=== PATIENT | male | born 1945 | race Caucasian/White ===

== ENCOUNTER 2019-06-11 13:01 | Outpatient (CLI) | payer MEDICARE, SELFPAY ==
--- NOTE | ~2019-06-11 | XR_ITS ---
EXAMINATION: XR chest 2V 06/11/2019 13:42 INDICATION: Chest pain PROCEDURE: 2 view chest COMPARISON: 02/01/2017 FINDINGS: The lungs are clear. The cardiomediastinal silhouette is within normal limits. There are no pleural effusions. There is no pneumothorax suspected. IMPRESSION: 1: NO ACUTE CARDIOPULMONARY DISEASE. Reviewed, dictated and finalized at location A.
== END 2019-06-11 13:02 | disposition home or self-care (01) ==
LOC: CHSIMG 13:09
PROVIDERS: PCP Family Medicine; Visit Provider Family Medicine
DX: R07.9 Chest pain, unspecified (principal)
CPT/HCPCS: 71046

== ENCOUNTER 2020-02-06 09:32 | Outpatient (CLI) | payer MEDICARE, SELFPAY ==
[2020-02-08 16:41] LABS: SARS-CoV-2 RNA PCR Negative
== END 2020-02-06 09:33 | disposition home or self-care (01) ==
LOC: CHSLAB 09:35
PROVIDERS: PCP Family Medicine; Visit Provider Family Medicine
DX: Z20.828 Contact with and (suspected) exposure to other viral communicable diseases (principal)
CPT/HCPCS: 87635; C9803; U0003

== ENCOUNTER → 2020-11-15 09:50 | Outpatient (CLI) | payer MEDICARE, SELFPAY ==
[2020-11-15 19:54] LABS: SARS-CoV-2 RNA PCR Negative
== END ==
PROVIDERS: PCP Family Medicine; Visit Provider Nurse Practitioner Family
DX: R68.89 Other general symptoms and signs (principal); Z20.822 Contact with and (suspected) exposure to COVID-19
CPT/HCPCS: C9803; U0003; U0005

== ENCOUNTER 2021-07-12 13:55 | Outpatient (CLI) | payer MEDICARE, SELFPAY ==
[2021-07-12 14:56] LABS: SARS-CoV-2 RNA PCR Positive (Negative)
== END 2021-07-12 13:56 | disposition home or self-care (01) ==
LOC: CHSLAB 13:58
PROVIDERS: PCP Family Medicine; Visit Provider Nurse Practitioner Family
DX: U07.1 COVID-19 (principal); R68.89 Other general symptoms and signs
CPT/HCPCS: C9803; U0003; U0005

== ENCOUNTER 2022-01-18 10:13 | Outpatient (CLI) | payer MEDICARE, SELFPAY ==
--- NOTE | ~2022-01-18 | XR_ITS ---
EXAMINATION: XR chest 2V 01/18/2022 10:27 INDICATION: Cough PROCEDURE: 2 view chest COMPARISON: Comparison to multiple prior studies sequentially, with oldest reviewed study dated 04/12. FINDINGS: The lungs are clear. The cardiomediastinal silhouette is within normal limits. There are no pleural effusions. There is no pneumothorax suspected. IMPRESSION: 1: NO ACUTE CARDIOPULMONARY DISEASE. Reviewed, dictated and finalized at location A.
== END 2022-01-18 10:14 | disposition home or self-care (01) ==
LOC: CHSIMG 10:15
PROVIDERS: PCP Family Medicine; Visit Provider Family Medicine
DX: J40 Bronchitis, not specified as acute or chronic (principal)
CPT/HCPCS: 71046

== ENCOUNTER 2022-09-19 06:06 | Day surgery (SDC) | payer MEDICARE, SELFPAY ==
[2022-09-04 13:36] VITALS: BMI 33.2
--- NOTE | 2022-09-17 14:58 | PM.HPGS ---
History of Present Illness History of Present Illness Consent: Risks, benefits, and alternatives have been discussed and questions answered. Patient agrees to proceed with procedure. Chief complaint: Desouza's Esophagus Narrative: Carlos Howard is a 76 year old male referred for follow-up of Barretts esophagus. Biopsies revealed Desouza's esophagus in 2016. A subsequent examination 3 years later biopsies did not show Desouza's mucosa. He did have a Schatzki's ring at that time. Review of Systems Review of Systems: All systems reviewed & are unremarkable except as noted in HPI and below PMFSH Past Medical History Medical History BMI 33.0-33.9,adult BMI 34.0-34.9,adult Bronchitis Coronary artery disease Erectile dysfunction Hyperlipidemia Hypertension Osteoarthritis of hands, bilateral Screening for prostate cancer URI (upper respiratory infection) Surgical History Surgical History History of appendectomy History of heart artery stent History of prostatectomy Family History Family History Mother Cerebrovascular accident Family history of malignant neoplasm of brain Family history of malignant neoplasm Father Family history of coronary artery disease Social History Social History Smoking status: Never smoker Second hand tobacco smoke exposure: Yes Alcohol intake: current Substance use: never Substance use type: does not use Living arrangements: other Additional living arrangements comments: With 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 Gender identity (if verbalized by the patient): Male Meds Home Medications and Allergies Home Medications Medication Instructions Recorded Confirmed Type Multi-Vitamins with Iron 1 tab-cap PO DAILY 01/16/19 09/04/22 History aspirin 81 mg tablet,delayed 81 mg PO DAILY 01/16/19 09/04/22 History release (Carlos Low Dose Aspirin) cholecalciferol (vitamin D3) 100 4,000 unit PO DAILY 01/16/19 09/04/22 History mcg (4,000 unit) capsule (Vitamin D3) coenzyme Q10 200 mg capsule (Co 250 mg PO DAILY 01/16/19 09/04/22 History Q-10) cyanocobalamin (B12)-cobamamide 200 truong sublingual DAILY 01/16/19 09/04/22 History 5,000 mcg-100 mcg sublingual lozenge (B12) nitroglycerin 0.4 mg sublingual 0.4 mg sublingual Q5M PRN chest 06/11/19 09/04/22 Rx tablet pain #25 tabs metoprolol succinate 25 mg See Rx Instructions .Route 03/14/20 09/04/22 Rx tablet,extended release 24 hr .COMPLEX #90 tabs amlodipine 5 mg tablet (Norvasc) 5 mg PO DAILY #90 tabs 05/16/20 09/04/22 Rx irbesartan 150 mg tablet 150 mg PO DAILY #90 tabs 06/11/20 09/04/22 Rx atorvastatin 10 mg tablet 10 mg PO DAILY #30 tabs 06/20/20 09/04/22 Rx diclofenac sodium 1 % topical gel 2 g topical QID #100 grams 06/01/21 09/04/22 Rx trazodone 50 mg tablet 50 mg PO HS PRN RESTLESS LEG #90 03/08/22 09/04/22 Rx tabs celecoxib 200 mg capsule (Celebrex) 200 mg PO DAILY #90 caps 06/18/22 09/04/22 Rx omeprazole 20 mg capsule,delayed See Rx Instructions .Route 07/11/22 09/04/22 Rx release .COMPLEX #90 caps cyclobenzaprine 10 mg tablet 10 mg PO TID PRN muscle spasm #30 07/16/22 09/04/22 Rx tabs Allergies Allergy/AdvReac Type Severity Reaction Status Date / Time No Known Allergies Allergy Verified 09/04/22 13:28 Exam Const: General: alert Orientation/consciousness: patient oriented x3 Resp: Auscultation: clear to auscultation bilaterally Cardio: Rhythm: regular rhythm GI: GI Palp: Yes Soft to palpation and No Tenderness to palpation present (GI) Neuro: General: patient oriented x3 Assessment and Plan Assessment and plan (1) Desouza's esophagus: Qualifiers: Desouza's es
[2022-09-19 07:27] VITALS: BP 167/68; PULSE 42; RESP 18; TEMP 36.3; O2SAT 99
[2022-09-19] MEDS: LACTATED RINGERS 1,000 ML 150 ML IV CONT (07:38)
--- NOTE | 2022-09-19 07:52 | WPDANESEPPF ---
Anes - Initial Pre Proc Eval Procedure: Operation Date: 09/19/22 09:00 Proposed Procedures p Esophagogastroduodenoscopy - Guero Berkowitz MD Date/Time: 09/19/22 07:52 Surgeon: Guero Berkowitz MD Pre Op Diagnosis: Desouza's Esophagus Patient Data Age: 76 Gender: M Height: 1.8 m Weight: 109 kg Last Vital Signs Temp 97.3 F L 09/19/22 07:27 Pulse 42 L 09/19/22 07:27 Resp 18 09/19/22 07:27 BP 167/68 H 09/19/22 07:27 Pulse Ox 99 09/19/22 07:27 O2 Del Method Room Air 09/19/22 07:27 Allergies Allergy/AdvReac Type Severity Reaction Status Date / Time No Known Allergies Allergy Verified 09/19/22 07:27 Home Medications Medication Instructions Recorded Confirmed Type Multi-Vitamins with Iron 1 tab-cap PO DAILY 01/16/19 09/04/22 History aspirin 81 mg tablet,delayed 81 mg PO DAILY 01/16/19 09/04/22 History release (Carlos Low Dose Aspirin) cholecalciferol (vitamin D3) 100 4,000 unit PO DAILY 01/16/19 09/04/22 History mcg (4,000 unit) capsule (Vitamin D3) coenzyme Q10 200 mg capsule (Co 250 mg PO DAILY 01/16/19 09/04/22 History Q-10) cyanocobalamin (B12)-cobamamide 200 truong sublingual DAILY 01/16/19 09/04/22 History 5,000 mcg-100 mcg sublingual lozenge (B12) nitroglycerin 0.4 mg sublingual 0.4 mg sublingual Q5M PRN chest 06/11/19 09/04/22 Rx tablet pain #25 tabs metoprolol succinate 25 mg See Rx Instructions .Route 03/14/20 09/04/22 Rx tablet,extended release 24 hr .COMPLEX #90 tabs amlodipine 5 mg tablet (Norvasc) 5 mg PO DAILY #90 tabs 05/16/20 09/04/22 Rx irbesartan 150 mg tablet 150 mg PO DAILY #90 tabs 06/11/20 09/04/22 Rx atorvastatin 10 mg tablet 10 mg PO DAILY #30 tabs 06/20/20 09/04/22 Rx diclofenac sodium 1 % topical gel 2 g topical QID #100 grams 06/01/21 09/04/22 Rx trazodone 50 mg tablet 50 mg PO HS PRN RESTLESS LEG #90 03/08/22 09/04/22 Rx tabs celecoxib 200 mg capsule (Celebrex) 200 mg PO DAILY #90 caps 06/18/22 09/04/22 Rx omeprazole 20 mg capsule,delayed See Rx Instructions .Route 07/11/22 09/04/22 Rx release .COMPLEX #90 caps cyclobenzaprine 10 mg tablet 10 mg PO TID PRN muscle spasm #30 07/16/22 09/04/22 Rx tabs Patient hx anesthesia problems: none Family hx anesthesia problems: none Results Review: All pre-operative results and documents have been reviewed as part of the pre-operative evaluation. [facility] Past Medical History Medical History BMI 33.0-33.9,adult BMI 34.0-34.9,adult Bronchitis Coronary artery disease Erectile dysfunction Hyperlipidemia Hypertension Osteoarthritis of hands, bilateral Screening for prostate cancer URI (upper respiratory infection) Surgical History Surgical History History of appendectomy History of heart artery stent History of prostatectomy Family History Family History Mother Cerebrovascular accident Family history of malignant neoplasm of brain Family history of malignant neoplasm Father Family history of coronary artery disease Social History Social History Smoking status: Never smoker Second hand tobacco smoke exposure: Yes Alcohol intake: current Substance use: never Substance use type: does not use Living arrangements: other Additional living arrangements comments: With Occupation/Education: 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
[2022-09-19 08:34] VITALS: BP 105/63; PULSE 48; RESP 15; O2SAT 96
[2022-09-19 08:43] VITALS: BP 119/67; PULSE 42; RESP 18; O2SAT 96
[2022-09-19 08:53] VITALS: BP 119/68; PULSE 41; RESP 18; O2SAT 97
--- NOTE | 2022-09-19 09:01 | SUR.PHASEII ---
Dr. Bailey aware of low heart rate. Patient seeing Dr. Snell tomorrow and patient contacted who prescribes Metoprolol. Advised not to take metoprolol until consulting with the doctors.
== END 2022-09-19 09:09 | disposition home or self-care (01) ==
PROVIDERS: PCP Family Medicine; Visit Provider Internal Medicine Gastroenterology
PROC: 0DJ08ZZ Inspection of Upper Intestinal Tract, Via Natural or Artificial Opening Endoscopic (ICD-10-PCS; CPT 43235; principal; 2022-09-19 09:00)
DX: K22.70 Barrett's esophagus without dysplasia (principal); K21.9 Gastro-esophageal reflux disease without esophagitis; K44.9 Diaphragmatic hernia without obstruction or gangrene; K22.2 Esophageal obstruction; I10 Essential (primary) hypertension; E78.5 Hyperlipidemia, unspecified; I25.10 Atherosclerotic heart disease of native coronary artery without angina pectoris; Z95.5 Presence of coronary angioplasty implant and graft; Z79.82 Long term (current) use of aspirin; E66.9 Obesity, unspecified; Z68.33 Body mass index [BMI] 33.0-33.9, adult
CPT/HCPCS: 43239; 88305; J2704; J7120

== ENCOUNTER 2023-04-02 11:57 | Outpatient (CLI) | payer MEDICARE, SELFPAY ==
--- NOTE | ~2023-04-02 | XR_ITS ---
Clinical Indication: Cough PA and lateral views of the chest: Comparison: 01/18/2022 Findings: The lungs are clear, without evidence of focal consolidation or pleural effusion. Cardiome diastinal silhouette is within normal limits. Bones and soft tissues are unremarkable. Impression: Normal chest. Reviewed, dictated and finalized at location . [facility] Impression: Normal chest.
== END 2023-04-02 11:58 | disposition home or self-care (01) ==
LOC: CHSIMG 12:00
PROVIDERS: PCP Family Medicine; Visit Provider Physician Assistant
DX: R05.9 Cough, unspecified (principal)
CPT/HCPCS: 71046

== ENCOUNTER 2023-05-10 08:24 | Outpatient (CLI) | payer MEDICARE, SELFPAY ==
[2023-05-10 08:42] LABS: Basophils Absolute Auto 0.04 K/mm3 (0.00-0.10); Basophils Percent Auto 0.8 % (0.0-1.0); Eosinophils Percent Auto 5.9 % (1.0-6.0); Hemoglobin 14.6 g/dL (12.4-15.3); Immature Granulocyte Absolute 0.01 K/mm3 (0.00-0.00); Immature Granulocyte Percent A 0.2 % (0.0-0.0); Lymphocytes Absolute Auto 2.43 K/mm3 (1.10-4.50); Lymphocytes Percent Auto 47.7 % (18.0-42.0); Mean Corpuscular HGB Conc 34.8 g/dL (32.0-36.0); Mean Corpuscular Hemoglobin 30.3 pg (27.0-31.0); Mean Corpuscular Volume 87.1 fL (78.0-102.0); Mean Platelet Volume 8.1 fl (8.7-11.0); Monocytes Absolute Auto 0.55 K/mm3 (0.10-0.90); Monocytes Percent Auto 10.8 % (2.0-11.0); Neutrophils Absolute Auto 1.8 K/mm3 (1.7-7.2); Neutrophils Percent Auto 34.6 % (50.0-70.0); Platelet Count Result 259 K/mm3 (150-420); Red Blood Count 4.82 M/mm3 (4.70-6.10); Red Cell Distribution Width 12.1 % (11.6-14.4); White Blood Count 5.1 K/mm3 (4.8-10.8)
[2023-05-10 09:24] LABS: Alanine Aminotransferase 23 U/L (16-63); Albumin Level 3.7 g/dL (3.4-5.0); Alkaline Phosphatase 79 U/L (46-116); Anion Gap 6 mmol/L (8-16); Aspartate Amino Transferase 13 U/L (15-37); Bilirubin,Total 0.9 mg/dL (0.00-1.00); Blood Urea Nitrogen 12 mg/dL (7-18); Calcium 8.6 mg/dL (8.5-10.1); Carbon Dioxide 32 mmol/L (21-32); Chloride 105 mmol/L (98-108); Estimated Glomerular Filt Rate 60; Glucose 98 mg/dL (70-99); Osmolality Calculated 295 mOsm/kg (285-295); Potassium 4.5 mmol/L (3.5-5.1); Sodium 143 mmol/L (136-145); Total Protein 6.6 g/dL (6.4-8.2)
== END 2023-05-10 08:25 | disposition home or self-care (01) ==
LOC: CHSLAB 08:26
PROVIDERS: PCP Family Medicine; Visit Provider Nurse Practitioner Adult Health
DX: I10 Essential (primary) hypertension (principal); R05.3 Chronic cough
CPT/HCPCS: 36415; 80053; 85025

== ENCOUNTER → 2023-05-13 09:20 | Outpatient (CLI) | payer MEDICARE, SELFPAY ==
--- NOTE | ~2023-05-13 | CT_ITS ---
CT Scan of the Chest without Contrast: Clinical Indication: Chronic cough Technique: Contiguous sections were acquired throughout the chest without intravenous contrast. Dose reduction technique was used on this scan by utilizing automated exposure control and iterative recon struction technique. The dose-length product (DLP) was 590.19 mGy-cm. Findings: There is no evidence of any significant mediastinal, hilar or axillary lymphadenopathy. The mediastin al soft tissues appear normal. There is no evidence of pleural or pericardial effusion. The lungs are clear. No pulmonary nodules or infiltrates are noted. Images through the upper abdomen reveal no abnormalities. Impression: No significant abnormalities seen. Reviewed, dictated and finalized at [facility]. [facility] SPECIALIST Impression: No significant abnormalities seen.
== END ==
PROVIDERS: PCP Nurse Practitioner Adult Health; Visit Provider Nurse Practitioner Adult Health
DX: R05.3 Chronic cough (principal)
CPT/HCPCS: 71250

== ENCOUNTER 2023-08-02 10:22 | Outpatient (CLI) | payer MEDICARE, SELFPAY ==
--- NOTE | ~2023-08-02 | US_ITS ---
Renal-Bladder ultrasound Clinical History: Acute kidney failure Technique: Real-time sonographic imaging of the kidneys and urinary bladder was performed. Findings: The right kidney measures 11.0 cm in length and the left kidney measures 10.1 cm. There is no hydronephrosis or renal calculus identified. Renal cortical echogenicity is within normal limits. No renal mass lesion is identified. The urinary bladder is moderately distended at the time of this exam. No intraluminal echoes are iden tified. No abnormal wall thickening is seen. Impression: Unremarkable ultrasound of the kidneys and urinary bladder. Reviewed, dictated and finalized at location M. Impression: Unremarkable ultrasound of the kidneys and urinary bladder.
== END 2023-08-02 10:23 ==
LOC: MICIMG 10:23
PROVIDERS: PCP Family Medicine; Visit Provider Nurse Practitioner Adult Health
DX: N17.9 Acute kidney failure, unspecified (principal)
CPT/HCPCS: 76775

== ENCOUNTER 2023-10-15 11:04 | Outpatient (CLI) | payer MEDICARE, SELFPAY ==
--- NOTE | ~2023-10-15 | XR_ITS ---
XR knee RT 3V Ordering provider: Puja Hdz APRN History: . M70.50 - Other bursitis of knee, unspecified knee . Comparison: None. FINDINGS: BONES: No acute fracture or dislocation. JOINT SPACES: Severe narrowing of the medial compartment. SOFT TISSUES: Normal. IMPRESSION: No acute osseous abnormality right knee. Severe osteoarthritic changes. Reviewed, dictated and finalized at location A.
== END 2023-10-15 11:05 ==
LOC: MICIMG 11:05
PROVIDERS: PCP Family Medicine; Visit Provider Nurse Practitioner Adult Health
DX: M70.50 Other bursitis of knee, unspecified knee (principal); M17.11 Unilateral primary osteoarthritis, right knee
CPT/HCPCS: 73562

== ENCOUNTER 2023-10-22 16:07 | Outpatient (CLI) | payer MEDICARE, SELFPAY ==
--- NOTE | ~2023-10-22 | XR_ITS ---
EXAM: XR knee LT min 4V DATE: 10/22/2023 16:17 HISTORY: M25.561 - Pain in left knee . COMPARISON: None available. FINDINGS: Normal mineralization. No fracture or dislocation. No lytic or blastic lesion. Severe medi al joint space narrowing. Tricompartmental osteophytosis, moderate in the medial compartment. No eros ion or periosteal change. Soft tissues within normal limits. IMPRESSION: Tricompartmental left knee osteoarthritis, most pronounced in the medial compartment. Reviewed, dictated and finalized at location K. IMPRESSION: Tricompartmental left knee osteoarthritis, most pronounced in the m edial compartment.
== END 2023-10-22 16:08 ==
PROVIDERS: PCP Family Medicine; Visit Provider Family Medicine
DX: M17.12 Unilateral primary osteoarthritis, left knee (principal)
CPT/HCPCS: 73564

== ENCOUNTER 2024-02-07 08:41 | Outpatient (CLI) | payer MEDICARE, SELFPAY ==
--- NOTE | 2024-02-07 13:46 | WPDPFTINT ---
PFT Procedure Performed PFT Procedure Performed Spirometry with Pre/Post Bronchodilator Plethysmography (Lung Vol) Diffusing Cap (DLCO) Flow Vol Loop PFT Interpretation DOS: 02/07/2024 REQUESTING: Juice Snell MD REASON FOR TESTING: Chronic cough PULMONARY FUNCTION TESTS Results are reliable and reproducible. Spirometry: The pre-bronchodilator FEV1 is 3.0 L, 93%. The pre-bronchodilator FVC is 4.42 L, 105%. The FEV1/FVC ratio is 68%. After bronchodilator, the FEV1 is 3.0 L, 93%, no change. The post-bronchodilator FVC is 4.33 L, 103%, -2%. The FEV1/FVC ratio is 69%. the FEF 25-75% is 1.58 L, 48% predicted and this increases to 1.89 L, 56%, +20%. Lung volumes: The total lung capacity is 7.32 L, 106%, normal. The residual volume is 2.90 L, 104%, normal. The RV/TLC is 40%. Airway resistance is increased. Diffusion: DLCO is 25.6, 105%. The DLCO/VA is 3.99, 117%. Flow volume loop: The flow volume loop is normal. IMPRESSION: This study shows a mild obstructive ventilatory impairment without response to bronchodilator, normal lung volumes and normal diffusion. Lack of response to bronchodilator should not preclude use if clinically indicated. No prior studies are available to compare. Tory Alexandra MD
== END 2024-02-07 08:42 | disposition home or self-care (01) ==
PROVIDERS: PCP Family Medicine; Visit Provider Family Medicine
DX: R06.2 Wheezing (principal); R05.3 Chronic cough
CPT/HCPCS: 94060; 94726; 94729